=== PATIENT | male | born 1945 | race American Indian/Alaskan Native ===

== ENCOUNTER 2016-04-21 10:18 | Outpatient (CLI) | payer MEDICARE, OTHER ==
--- NOTE | 2016-04-21 15:07 | Cat Scan Report ---
CT ABDOMEN AND PELVIS WITHOUT CONTRAST: INDICATION: Flank pain. COMPARISON: 04/22/2015 FINDINGS: Abdomen and pelvis CT performed following oral contrast only. LUNG BASES: Approximately 6 mm peripheral/pleural-based right middle lobe calcified granuloma again noted, axial image 13, series 2 with another, approximately 4 mm more superiorly also now imaged as on axial image 2. Few coronary calcifications. No effusions. Mild nonspecific distal esophageal prominence/thickening. ABDOMEN: Please note that sensitivity to detect small visceral lesions is limited due to the absence of intravenous contrast. However, interval worsening of multiple hepatic masses noted, as follows: 1. The two dominant right paramidline left hepatic lobe masses are larger and demonstrate increased intrinsic densities/calcifications. The more superior lesion near the dome is approximately 2.4 x 1.9 cm, axial image 46, series 2, previously approximately 1.1 cm. The other more inferior, larger lesion is now 2.5 x 2.2 cm, axial image 62, series 2, previously 1.8 x 1.5 cm. 2. A third hypodense lesion in the left hepatic lobe near its tip now measures 3.1 x 2.3 cm, axial image 84, series 2. 3. At least 2 hypodense lesions also now identified in the right hepatic lobe inferiorly, the larger approximately 1.6 cm on axial image 121 and the other more inferiorly near the tip measuring approximately 1.3 cm, axial image 147, series 2. Grossly unremarkable spleen, gallbladder, pancreas, adrenals, nonaneurysmal abdominal aorta with few atherosclerotic calcifications and IVC. Nonhydronephrotic kidneys with few bilateral renal cortical hypodensities/cysts, the largest approximately 1.5 cm on the right superiorly, axial image 108 while approximately 1.9 cm towards the left lower renal aspect, axial image 146. Approximately 4 mm right renal calcification anteriorly as well, axial image 127. Opacified GI tract nonobstructive and within normal limits. Normal appendix positioned slightly medial, anterior to the right psoas as on axial image 195, amongst others. [id number] colonic stool, most along the ascending colon. PELVIS: Numerous brachytherapy seeds creating streak artifact noted. Few pelvic phleboliths. Grossly unremarkable seminal vesicles and the rectosigmoid. Urinary bladder distention limited with slight exaggerated wall thickness. Subtle perivesicular fat stranding though noted. Minimal presacral stranding as well. No free fluid or significant adenopathy. Multilevel spinal degenerative changes, greatest lower lumbar with severe L4-L5 and L5-S1 disc narrowing with degenerative spurring and vacuum phenomenon. Mild spinal stenosis at L4-L5 also not excluded. CONCLUSION: 1. Interval enlargement of previously identified hepatic masses while some others noted new and most consistent with metastases, as described. These would be amenable to percutaneous CT-guided biopsy, if warranted. 2. Brachytherapy seeds and possible mild cystitis. 3. Various other incidental findings, including benign right middle lobe calcifications, bilateral renal cysts and lower lumbar degenerative changes, amongst others, as above. Thank you for the opportunity to participate in this patient's care.
--- NOTE | 2016-04-21 15:43 | Nuclear Medicine Report ---
BONE SCAN: History: Prostate cancer. Comparison: Noncontrast CT abdomen and pelvis performed the same day. After injection of isotope, gamma camera imaging of the bony system was done. There is a normal uptake of isotope throughout the bony structures without areas of significantly increased or decreased uptake. Mild degenerative uptake at L3-4 and bilateral knees is noted. Normal uptake in the urinary system is seen. IMPRESSION: Negative bone scan. Mild degenerative changes.
== END 2016-04-21 10:19 | disposition home or self-care (01) ==
LOC: NM 10:18
PROVIDERS: ATTEND Urology
DX: C61 Malignant neoplasm of prostate (principal); M48.06 Spinal stenosis, lumbar region; N28.1 Cyst of kidney, acquired; I25.10 Atherosclerotic heart disease of native coronary artery without angina pectoris; I70.0 Atherosclerosis of aorta; N28.89 Other specified disorders of kidney and ureter; I87.8 Other specified disorders of veins; M47.896 Other spondylosis, lumbar region; R10.9 Unspecified abdominal pain; R16.0 Hepatomegaly, not elsewhere classified
CPT/HCPCS: 74176; 78306; A9503

== ENCOUNTER 2016-05-12 08:53 | Day surgery (SDC) | payer MEDICARE, OTHER ==
[2016-05-12] MEDS ORDERED: VERSED IV ONE (10:22)
[2016-05-12] MEDS ORDERED: SUBLIMAZE ONE (10:22)
--- NOTE | 2016-05-13 08:31 | Cat Scan Report ---
CT BIOPSY LIVER: HISTORY: Liver mass, history of prostate cancer. DESCRIPTION OF PROCEDURE: Informed consent was obtained. Sterile technique was utilized. Conscious sedation was accomplished with Versed and fentanyl. The patient was sedated for 20 minutes. Independent cardiorespiratory monitoring by RN. Intraobserver time was [address] guidance, a 17-gauge introducer needle was advanced into a 2.2 cm right hepatic lobe lesion. Three 18-gauge core biopsies were obtained. The samples were deemed adequate by the pathologist on site. The patient tolerated the procedure well. Follow-up scan demonstrates no evidence for hemorrhage. IMPRESSION: Successful CT-guided biopsy of a 2.2 cm right hepatic lobe mass.
== END 2016-05-12 08:54 | disposition home or self-care (01) ==
LOC: OPU 08:53
PROVIDERS: ATTEND Urology
DX: R16.0 Hepatomegaly, not elsewhere classified (principal); Z85.46 Personal history of malignant neoplasm of prostate; Z87.891 Personal history of nicotine dependence
CPT/HCPCS: 47000; 77012; 88307; 88313; J2250; J3010

== ENCOUNTER 2016-09-28 06:30 | Day surgery (SDC) | payer MEDICARE, OTHER ==
[2016-09-28 08:25] LABS: Hematocrit 34.8 % (35.5-45.6); Hemoglobin 11.4 gm/dl (11.8-15.2); Mean Corpuscular HGB Conc 33 % (32-34); Mean Corpuscular Hemoglobin 29 pg (28-32); Mean Corpuscular Volume 88 fl (84-94); Platelet Count 159 K/mm3 (140-440); Red Blood Count 3.96 M/mm3 (3.65-5.03); Red Cell Distribution Width 14.9 % (13.2-15.2); White Blood Count 3.1 K/mm3 (4.5-11.0)
[2016-09-28 08:34] LABS: INR 0.99 (0.87-1.13)
[2016-09-28 08:35] LABS: Partial Thromboplastin Time 28.9 Sec. (24.2-36.6)
[2016-09-28 09:01] LABS: Blastocytes % (Manual) 0 %
[2016-09-28 09:02] LABS: Diff Status Complete; Elliptocytes Rare; Ovalocytes 1+; Polychromasia Rare; Stomatocytes 1+
[2016-09-28] MEDS ORDERED: NACL 0.45% 0 ML IV ONE (09:05)
[2016-09-28] MEDS ORDERED: NACL 0.9% 500 ML 0 ML ONE (09:06)
[2016-09-28] MEDS ORDERED: BENADRYL ONE (09:40)
[2016-09-28] MEDS ORDERED: VERSED IV ONE (10:00)
[2016-09-28] MEDS ORDERED: SUBLIMAZE IV ONE (10:00)
[2016-09-28] MEDS ORDERED: BENADRYL IV ONE (10:30)
--- NOTE | 2016-09-28 11:17 | Cat Scan Report ---
CT BIOPSY LIVER HISTORY: Malignant neoplasm of prostate, liver mass. DESCRIPTION OF PROCEDURE: Informed consent was obtained. Sterile technique was utilized. 1% lidocaine for skin anesthesia. Conscious sedation was accomplished with Versed, fentanyl and Benadryl. The patient was sedated for 25 minutes. Interobserver time of 20 minutes. Independent cardiorespiratory monitoring by RN. Using CT guidance, a 19-gauge introducer needle was advanced to the leading edge of an approximate 4 cm hypodense mass in the anterior left hepatic lobe. Please note that biopsy on 05/12/16, an approximate 2.2 cm similar appearing hypodense mass in the right hepatic lobe was biopsied. Four 20-gauge core biopsies were obtained for pathology. The pathologist was on site and deemed the samples adequate. The patient tolerated the procedure well and left radiology in stable condition. IMPRESSION: Successful CT-guided biopsy of a 4 cm left hepatic lobe mass.
[2016-09-28 13:37] VITALS: BP 127/73
== END 2016-09-28 13:45 | disposition home or self-care (01) ==
LOC: OPU 06:30 → EDSTATUS 08:30 → OPU 13:45
PROVIDERS: ATTEND Urology
DX: C78.7 Secondary malignant neoplasm of liver and intrahepatic bile duct (principal); C61 Malignant neoplasm of prostate
CPT/HCPCS: 36415; 47000; 77012; 85007; 85025; 85610; 85730; 88307; 88342; J1200; J2250; J3010; 88305; 88333; J7040

== ENCOUNTER 2016-10-29 09:41 | Outpatient (CLI) | payer MEDICARE, OTHER ==
[2016-10-29 11:03] LABS: Blood Urea Nitrogen 13 mg/dL (9-20)
--- NOTE | 2016-10-29 15:16 | Cat Scan Report ---
CT scan of chest with IV contrast: History: Malignant neoplasm of prostate. Findings: No endobronchial or mediastinal mass. No mediastinal, hilar or axillary adenopathy. Calcified lymph nodes in the mediastinum and hilar areas. Calcified granuloma right lung. No pleural pericardial effusion. No acute consolidation or lung mass. Impression: Non-enlarged calcified lymph nodes mediastinum and hilar area bilaterally. Calcified granuloma right lung. Degenerative dorsal spine is suspected sclerotic bony metastasis.
--- NOTE | 2016-10-29 15:27 | Cat Scan Report ---
CT scan of abdomen and pelvis with IV contrast: Compared to 04/12/15 and 04/21/16. History: Malignant neoplasm of prostate. Findings: There is faint ill-defined circumscribed hypodensity at the left lobe liver measuring 1.9 cm in diameter with focal central area of enhancement. Hypodensity measuring 2.2 cm in diameter right lobe adjacent to the falciform ligament. 2 hypoechoic densities measuring 1.8 and 2.3 cm in diameter adjacent to each other at right lobe. Hypodensity measuring 3.4 cm in diameter is also identified with central focal areas of enhancement. 1.4 cm hypodensity without enhancement noted in the posterior inferior aspect of the right lobe of the liver. No intrahepatic duct dilatation. Normal pancreas gallbladder and spleen. Normal adrenals. 1.5 cm circumscribed hypodensity right kidney. Subcentimeter hypodensities also noted in the right kidney. 1.5 cm circumscribed hypodensity left kidney with subcentimeter hypodensities and larger hypodensity left kidney measuring 2.1 cm in diameter. Normal urinary bladder. No hydronephrosis. No free intraperitoneal fluid or. Brachytherapy seeds in the prostate. No evidence of appendicitis or diverticulitis. Stool in colon. Degenerative dorsal spine with suspected bony sclerotic metastasis. Impression: Multiple circumscribed hypodensities liver probably suggestive of metastatic disease. Circumscribed hypodensities in kidneys probably suggestive of cysts.
--- NOTE | 2016-10-30 12:34 | Nuclear Medicine Report ---
NUCLEAR MEDICINE WHOLE-BODY BONE SCAN: 10/29/16 10:00:00 CLINICAL: Malignant neoplasm prostate. COMPARISON: 04/21/16 TECHNIQUE: 25.0-millicuries technetium 99m MDP was injected intravenously and whole body scans were obtained at 3 hours. FINDINGS: The distribution of radionuclide in the skeleton is normal except for benign uptake in the right maxillary sinus, both knees and both feet and at L3-4. No suspicious activity. IMPRESSION: Negative for metastatic disease.
== END 2016-10-29 09:42 | disposition home or self-care (01) ==
LOC: NM 09:41
PROVIDERS: ATTEND Internal Medicine Hematology & Oncology
DX: C61 Malignant neoplasm of prostate (principal); J84.10 Pulmonary fibrosis, unspecified; M47.899 Other spondylosis, site unspecified; Z87.891 Personal history of nicotine dependence
CPT/HCPCS: 36415; 71260; 74177; 78306; 82565; 84520; A9503; Q9967

== ENCOUNTER 2017-01-27 11:21 | Outpatient (CLI) | payer MEDICARE, OTHER ==
--- NOTE | 2017-01-28 15:37 | Cat Scan Report ---
CT CHEST, ABDOMEN AND PELVIS WITH CONTRAST: 01/27/17 11:21:00 CLINICAL: Prostate cancer followup. COMPARISON: 10/29/16 TECHNIQUE: Volumetric acquisition and 1.25 millimeter scan reconstructions after the uneventful intravenous injection of 100 cc of Omnipaque 300. Consent was obtained prior to the administration of the contrast. Oral contrast was also given. FINDINGS: Chest: The lungs are clear. No pulmonary nodule or mass. Normal aorta, heart and pulmonary arteries. Normal esophagus and trachea. No mediastinal or hilar lymphadenopathy.No axillary or supraclavicular lymphadenopathy. Abdomen: Previous described left and right hepatic masses are slightly larger. No new lesions. The largest mass is in the medial segment of the left lobe of the liver and measures 3.9 x 3.4 cm compared to 3.4 x 2.9 cm. A second medial segment mass measures 3.4 x 2.5 cm compared to 3.0 x 2.0 cm. A dominant lateral segment left lobe mass measures 3.9 x 3.0 cm compared to 3.6 x 2.7 cm. In addition to an increase in size, there is greater vascularity of the masses with more enhancement in the arterial phase of the scan. The bile ducts and gallbladder are normal. Normal stomach, duodenum, pancreas and spleen. Small bilateral renal cysts in otherwise normal kidneys. Normal adrenal glands. The renal collecting systems and ureters are nondilated. Mild aortoiliac tortuosity and calcification. The inferior vena cava is normal. No lymphadenopathy.No ascites.Normal small bowel. Normal ascending, transverse and descending colon. Normal appendix. Pelvis: Normal urinary bladder and rectum.Brachytherapy seeds in the prostate. No pelvic lymphadenopathy. Bone windows demonstrate no suspicious bone lesion. IMPRESSION: 1. Progression of disease with increased size and vascularity of hepatic metastases. 2. No new lesions. 3. No evidence of pulmonary, jazzmine or skeletal metastasis.
== END 2017-01-27 11:22 | disposition home or self-care (01) ==
LOC: SPVIMAG 11:21
PROVIDERS: ATTEND Internal Medicine Hematology & Oncology
DX: C78.7 Secondary malignant neoplasm of liver and intrahepatic bile duct (principal); C61 Malignant neoplasm of prostate; K76.89 Other specified diseases of liver; N28.1 Cyst of kidney, acquired
CPT/HCPCS: 71260; 74177; Q9967

== ENCOUNTER 2017-04-25 09:42 | Outpatient (CLI) | payer MEDICARE, OTHER ==
--- NOTE | 2017-04-25 14:39 | Nuclear Medicine Report ---
BONE SCAN: History: Prostate cancer Comparison: 10/29/16. After injection of isotope, gamma camera imaging of the bony system was done. There is a normal uptake of isotope throughout the bony structures without areas of significantly increased or decreased uptake. Moderate degenerative uptake is noted in both knees and right ankle. Normal uptake in the urinary system is seen. IMPRESSION: No evidence for metastatic disease to the bones.
--- NOTE | 2017-04-25 15:08 | Cat Scan Report ---
CT ABDOMEN PELVIS WITHOUT CONTRAST: HISTORY: Malignant neoplasm of prostate. COMPARISON: 01/27/17. Bone scan performed the same day. TECHNIQUE: Helical CT in 1.25mm intervals without IV contrast. Sagittal and coronal reconstructions. FINDINGS: Lung bases: No suspicious nodule, infiltrate or effusion. Liver: The previously described mixed density liver lesions the main right and left hepatic lobes are unchanged in size or number. No new liver lesions are identified. Biliary system: Normal. Pancreas: Normal. Spleen: Normal. Kidneys/ureters/bladder: Simple appearing bilateral renal cysts are unchanged in size and number. No obstructive uropathy. The ureters and bladder remain unremarkable. Radiotherapy beads are noted in the prostate bed. Adrenal glands: Normal. Aorta: Normal. Intestines: Normal. Appendix: Normal. Pelvic viscera: Normal. Ascites: None. Adenopathy: None. Musculoskeletal: No suspicious bony lesions have developed. IMPRESSION: Stable findings since 01/27/17. They are approximately 4 or 5 mixed density liver lesions which remain concerning for metastatic disease but are unchanged in size and contour. No new areas of disease are appreciated.
== END 2017-04-25 09:43 | disposition home or self-care (01) ==
LOC: NM 09:42
PROVIDERS: ATTEND Urology
DX: C61 Malignant neoplasm of prostate (principal); K76.89 Other specified diseases of liver; N28.1 Cyst of kidney, acquired; I10 Essential (primary) hypertension; E78.00 Pure hypercholesterolemia, unspecified; Z87.891 Personal history of nicotine dependence
CPT/HCPCS: 74176; 78306; A9503

== ENCOUNTER 2017-07-14 09:11 | Outpatient (CLI) | payer MEDICARE, OTHER ==
--- NOTE | 2017-07-14 14:39 | Cat Scan Report ---
CT ABDOMEN PELVIS WITHOUT CONTRAST: HISTORY: Malignant neoplasm of prostate. COMPARISON: 04/25/17. TECHNIQUE: Helical CT in 1.25mm intervals without IV contrast. Sagittal and coronal reconstructions. FINDINGS: Lung bases: Well-aerated. Calcified granuloma in the lateral right middle lobe is unchanged. No suspicious nodule. Normal heart size. Liver: 4 or 5 subtle liver masses were focal calcifications are unchanged in size and contour since the previous examination. No new liver lesions are identified. Biliary system: Normal. Pancreas: Normal. Spleen: Normal. Kidneys/ureters/bladder: Scattered simple renal cysts are unchanged in size and number. No evidence for nephrolithiasis or hydronephrosis. The ureters and bladder are unremarkable. Adrenal glands: Normal. Aorta: Normal. Intestines: Normal. Appendix: Normal. Pelvic viscera: Radiotherapy beads are noted in the prostate bed. No pelvic mass or adenopathy has developed. Ascites: None. Adenopathy: None. Musculoskeletal: No suspicious bony lesions are identified. Stable mild lumbar spondylosis. IMPRESSION: Stable findings since 04/25/17.
--- NOTE | 2017-07-14 14:41 | Nuclear Medicine Report ---
BONE SCAN: History: Malignant neoplasm of prostate. Comparison: Bone scan dated 04/25/17. CT abdomen pelvis performed the same day. After injection of isotope, gamma camera imaging of the bony system was done. There is a normal uptake of isotope throughout the bony structures without areas of significantly increased or decreased uptake. Normal uptake in the urinary system is seen. Mild facet uptake in the cervical spine and lumbar spine is noted and stable. Moderate degenerative uptake in the bilateral knees is stable. IMPRESSION: Negative bone scan.
== END 2017-07-14 09:12 | disposition home or self-care (01) ==
LOC: NM 09:11
PROVIDERS: ATTEND Urology
DX: C61 Malignant neoplasm of prostate (principal); N28.1 Cyst of kidney, acquired; J84.10 Pulmonary fibrosis, unspecified; K76.89 Other specified diseases of liver; M47.896 Other spondylosis, lumbar region
CPT/HCPCS: 74176; 78306; A9503

== ENCOUNTER 2018-01-13 10:24 | Outpatient (CLI) | payer MEDICARE, OTHER ==
--- NOTE | 2018-01-13 13:50 | Cat Scan Report ---
CT chest without contrast: Prostatic malignancy. Transverse images obtained from the thoracic inlet to the low chest with coronal and sagittal 2-D reformatted images. Comparison is made to a contrasted exam in January 2017. Numerous pulmonary and pleural based calcified nodules are noted. No noncalcified nodules noted. Hilar calcifications are present. Scattered shoddy mediastinal adenopathy is present. The central airways are patent. No significant changes compared to prior exam. Impression: Old granulomatous infection. No acute finding.
--- NOTE | 2018-01-13 14:10 | Cat Scan Report ---
CT abdomen and pelvis without contrast: Prostate malignancy. Transverse images are obtained through the abdomen and pelvis with coronal and sagittal 2-D reformatted images. Comparison made to the most recent prior exam of July 14, 2017. Granulomatous calcification in the right lobe of the liver. Heavily calcified and faintly hypodense mass seen in the left lobe of the liver with 2 adjacent lesions in the middle lobe. The more inferior of the 2 middle lobe masses is slightly more heavily calcified than seen on prior exam but the other to a similar. The middle lobe masses appear relatively unchanged in size but the left lobe mass may be slightly smaller. The abdominal findings are not otherwise remarkable. There is a non-obstructing small calculus in the upper pole of the right kidney. There is an inferior cyst with an adjacent area of hyperdensity in the mid kidney and a similar area of hyperdensity in the posterior lower right kidney. These hyperdensities are are unchanged from the most recent exam of July 14, 2017 but were not apparent on the prior exam in April 2017. 2 adjacent renal cysts are noted in the left lower kidney and a single cyst in the upper pole which have remained stable. No mesenteric or para-aortic adenopathy is noted. The partially opacified bowel and mesentery appears normal. Brachy therapy seeds noted in the prostate gland. No lytic or blastic bone lesions noted. Significant degenerative bone and disc degenerative change is noted in the lower lumbar spine. Impressions: 1. Generally stable right lobe liver metastases with questionable improvement in the left hepatic lobe lesion. 2. Unexplained hyperdensities in the right kidney stable since prior exam.
== END 2018-01-13 10:25 | disposition home or self-care (01) ==
LOC: CT 10:24
PROVIDERS: ATTEND Internal Medicine Hematology & Oncology
DX: L92.9 Granulomatous disorder of the skin and subcutaneous tissue, unspecified (principal); N28.89 Other specified disorders of kidney and ureter; K76.89 Other specified diseases of liver; I10 Essential (primary) hypertension; E78.00 Pure hypercholesterolemia, unspecified; M19.90 Unspecified osteoarthritis, unspecified site; Z90.79 Acquired absence of other genital organ(s); Z87.891 Personal history of nicotine dependence
CPT/HCPCS: 71250; 74176

== ENCOUNTER 2018-04-21 11:00 | Outpatient (CLI) | payer MEDICARE ==
[2018-04-21 11:28] LABS: Blood Urea Nitrogen 15 mg/dL (9-20)
--- NOTE | 2018-04-21 14:37 | Cat Scan Report ---
CT chest with contrast: Prostate CA. Following IV administration of contrast transverse sections are obtained through the chest. Coronal and sagittal 2-D reformatted images are included. Comparison is made to a comparable prior examination of January 13, 2018. There is shotty adenopathy in the mediastinum and both hilar regions. Some of these are calcified. There are a few scattered subpleural and parenchymal calcified nodules in the right lung. None are noted on the left. Focal linear atelectasis is noted at the medial left lung base. The findings are not otherwise remarkable nor changed from the prior examination. No blastic or lytic bone lesions identified. Impression: Stable exam. Prior granulomatous infection of the chest with no evidence of metastatic disease.
--- NOTE | 2018-04-21 15:02 | Cat Scan Report ---
CT abdomen and pelvis with contrast: Prostate CA. Following IV administration of contrast sections are obtained through the abdomen and pelvis with coronal and sagittal 2-D reformatted images. Comparison is made to a noncontrasted scan on January 13, 2018. Partially calcified lesions are again identified in the left middle and right lobes of the liver. The calcifications appear to be generally slightly denser than on prior exam. No significant change in size of the hypodense portions are noted. No evidence of a new lesion. Numerous bilateral circumscribed hypodensities are identified throughout both kidneys which are more evident with the contrasted images. The nonobstructing small calculus in the left upper kidney is unchanged but more difficult to see with the administration of contrast. Abdominal and retroperitoneal structures are not otherwise remarkable. There is no obvious periaortic or mesenteric adenopathy identified. The partially opacified bowel appears normal. Images of the pelvis again demonstrates prostatic brachy therapy seeds with no evidence of adenopathy. And disc changes with no blastic or lytic lesions identified. Impressions: Stable findings. No evidence of new liver or other lesions.
== END 2018-04-21 11:01 | disposition home or self-care (01) ==
LOC: CT 11:00
PROVIDERS: ATTEND Internal Medicine Hematology & Oncology
DX: C61 Malignant neoplasm of prostate (principal); L92.9 Granulomatous disorder of the skin and subcutaneous tissue, unspecified; I10 Essential (primary) hypertension; E78.00 Pure hypercholesterolemia, unspecified; Z87.891 Personal history of nicotine dependence
CPT/HCPCS: 36415; 71260; 74177; 82565; 84520; Q9967

== ENCOUNTER 2018-06-23 09:53 | Outpatient (CLI) | payer MEDICARE, OTHER ==
[2018-06-23 11:23] LABS: Blood Urea Nitrogen 11 mg/dL (9-20)
--- NOTE | 2018-06-24 11:31 | Cat Scan Report ---
PROCEDURE: CT ABDOMEN PELVIS W CON, CT CHEST W CON TECHNIQUE: CT imaging is obtained through the chest, abdomen and pelvis following the ingestion of p ositive enteric contrast and intravenous administration of contrast. HISTORY: PROSTATE CANCER COMPARISONS: 04/21/2018, 07/14/2017, 01/27/2017 FINDINGS: Chest: Heart size is normal. No pericardial effusion. No mediastinal lymphadenopathy. Scattered jazzmine calcif ications are consistent with sequela of old granulomatous disease. The aorta and main pulmonary arter y are normal in course and caliber. Scattered thoracic aortic calcification. Coronary artery disease. The central airways are patent. No bronchiectasis, pneumothorax, effusion, or focal airspace disease. Mild sequela of centrilobular emphysema. Right middle lobe pleural and 7 pleural calcification.. Rig ht minor fissure associated calcification also sequela of old granulomatous disease. No worrisome pul monary nodule or mass. Abdomen/pelvis: Calcified granulomas in the liver. An exophytic hypoenhancing lesion with adjacent calcification markie uring up to 19 mm on axial series 2, image 36 is unchanged from prior. The gallbladder, pancreas, spl een, and adrenal glands are unremarkable. Kidneys show no worrisome lesions, hydronephrosis, or calculi. Scattered cysts in both kidneys measur ing up to 2.5 cm are unchanged. Urinary bladder is without intraluminal stone. Suggested mild diffuse urinary bladder wall thickening is unchanged. Multiple metallic radiodensities within the prostate a re unchanged. Multiple pelvic phleboliths. Small and large bowel are normal in caliber. Positive enteric contrast is seen as far distally as the ileum. Appendix is normal. No free air, free fluid, or lymphadenopathy identified. Aorta is normal in course and caliber. Superficial soft tissues are unremarkable. No acute or aggressive appearing skeletal findings. IMPRESSION: No evidence of metastatic disease within the chest, abdomen or pelvis. This document is electronically signed by Evan Jimenez MD., June 24 2018 11:29:13 AM ET
--- NOTE | 2018-06-26 14:59 | Nuclear Medicine Report ---
BONE SCAN: History: Restaging of prostate cancer. Comparison: Bone scan dated 07/14/17. CT chest abdomen and pelvis dated 06/23/18. After injection of isotope, gamma camera imaging of the bony system was done. Moderate degenerative uptake is identified in the shoulders, right C4-5 facet joint, L2-3 facet joints, knees and ankles. This pattern is unchanged since the bone scan dated 07/14/17. No focal areas of abnormal uptake are identified to suggest metastatic disease. IMPRESSION: Negative bone scan. Degenerative findings as described. No change is demonstrated since the bone scan dated 07/14/17.
== END 2018-06-23 09:54 | disposition home or self-care (01) ==
LOC: NM 09:53
PROVIDERS: ATTEND Internal Medicine Hematology & Oncology
DX: C61 Malignant neoplasm of prostate (principal); J43.2 Centrilobular emphysema; I25.10 Atherosclerotic heart disease of native coronary artery without angina pectoris; M47.812 Spondylosis without myelopathy or radiculopathy, cervical region; I10 Essential (primary) hypertension; E78.00 Pure hypercholesterolemia, unspecified; M19.90 Unspecified osteoarthritis, unspecified site; Z87.891 Personal history of nicotine dependence
CPT/HCPCS: 36415; 71260; 74177; 78306; 82565; 84520; A9503; Q9967

== ENCOUNTER 2018-09-01 09:52 | Outpatient (CLI) | payer MEDICARE ==
[2018-09-01 10:42] LABS: Blood Urea Nitrogen 14 mg/dL (9-20)
--- NOTE | 2018-09-01 15:14 | Nuclear Medicine Report ---
NUCLEAR MEDICINE WHOLE-BODY BONE SCAN: 09/01/18 CLINICAL: Prostate cancer. COMPARISON: 06/23/18 and 07/14/17 TECHNIQUE: 25 millicuries technetium 99m MDP was injected intravenously and whole body scans were obtained at 3 hours. FINDINGS: The distribution pattern of radionuclide in the skeleton and soft tissues is unchanged compared to the previous exam except for a single tiny focus of uptake at the anterior left ninth rib. This is only identified on anterior imaging and there is no correlating lesion is identified on today's CT chest. Stable uptake in the right C4-5 facet joint and bilateral L2-3 facet joints, knees and ankles. IMPRESSION: A new tiny focus of uptake at the left anterior ninth rib which is of uncertain significance given that there is no CT finding. This may represent contamination related to the injection of the radionuclide and is of low suspicion. Recommend short-term followup bone scan for reevaluation.
--- NOTE | 2018-09-01 15:35 | Cat Scan Report ---
PROCEDURE: CT CHEST W CON TECHNIQUE: Computerized axial tomography of the chest was performed during the IV injection of iodin ated nonionic contrast. CT DOSE LENGTH PRODUCT: 4325.7 mGycm HISTORY: MALIGNANT NEOPLASM OF PROSTATE, HYPERTENSION COMPARISONS: None . FINDINGS: Contrast-enhanced CT of the chest was performed and compared to the prior examination of [facility] 2018. These images demonstrate no CT evidence of pulmonary thromboembolic disease. There is no aortic disse ction. There is a partially calcified right superior hilar node, 2.3 x 1.4 cm, unchanged. There is a node anterior to the distal trachea, axial image 48, 1.3 x 2.2 cm, unchanged. There is a right lower lobe noncalcified nodule, image 85, 0.3 cm unchanged from prior examination an d also unchanged from baseline examination of October 29, 2016. There are bilateral calcified pulmonary granulomas. There is a low-density left lobe thyroid nodule, 1.5 cm unchanged There is no pleural or pericardial effusion. An abdominal CT has been performed and will be reported separately. IMPRESSION: Stable small mediastinal lymph nodes Stable right anterior right lower lobe nodule This document is electronically signed by Bhaskar Nascimento MD., Sep 01 2018 03:33:13 PM ET
--- NOTE | 2018-09-01 15:50 | Cat Scan Report ---
PROCEDURE: CT ABDOMEN PELVIS W CON TECHNIQUE: Computerized axial tomography of the abdomen and pelvis was performed after the IV inject ion of iodinated nonionic contrast. HISTORY: MALIGNANT NEOPLASM OF PROSTATE, HYPERTENSION FINDINGS: Contrast-enhanced CT of the abdomen and pelvis was performed and data was reformatted in th e sagittal and coronal planes. Comparison is made to the prior examination of June 23, 2018. These images demonstrate a 0.3 cm nodule in the anterior aspect of the right lower lobe which has bee n stable in comparison to prior examinations dating back to October 29, 2016. There are some linear scar versus atelectasis at the medial left lung base. There is a lesion of the anterior aspect of the lateral segment left lobe of liver, partially exophyt ic the liver, axial image 37 measuring 3.0 x 3.1 x 2.8 cm and previously measuring 2.1 x 2.2 x 2.5 cm on the examination of June 13, 2018 and measuring 1.4 x 1.5 x 1.3 cm on the examination of September 19, 2018. There is a partially calcified left lobe hepatic lesion, axial images 26-27, 1.2 x 1.7 x 2.0 cm not s ignificantly changed from prior exam when measured in similar fashion. The liver is normal in size. The adrenal glands and pancreas are unremarkable. The gallbladder is within normal limits. There is no renal or ureteral calculus. There are bilateral renal cysts. There is no small or large bowel obstruction. There is aortic atherosclerotic change without aneurysm al dilation of the aorta. Pelvis: There is a normal appendix. There is no evidence of diverticulitis. 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 The urinary bladder is thick-walled and there is stranding around the bladder. This is similar to the prior examination but these findings would be consistent with cystitis. There are vacuum degenerative changes at L3-L4 and L5-S1, with endplate remodeling at these levels. N o definite nerve root impingement is seen IMPRESSION: ABDOMEN: Lesion of the lateral segment left lobe of liver, increased in size from prior CT examinatio ns of June 23, 2018 and April 21, 2018. Pelvis: The urinary bladder is thick-walled and there is stranding cholecystitis, similar to prior ex am This document is electronically signed by Bhaskar Nascimento MD., Sep 01 2018 03:48:00 PM ET
== END 2018-09-01 09:53 | disposition home or self-care (01) ==
LOC: NM 09:52
PROVIDERS: ATTEND Internal Medicine Hematology & Oncology
DX: N28.1 Cyst of kidney, acquired (principal); J84.10 Pulmonary fibrosis, unspecified; M47.817 Spondylosis without myelopathy or radiculopathy, lumbosacral region; K81.9 Cholecystitis, unspecified; I25.10 Atherosclerotic heart disease of native coronary artery without angina pectoris; R59.9 Enlarged lymph nodes, unspecified; R91.1 Solitary pulmonary nodule; E78.00 Pure hypercholesterolemia, unspecified; I10 Essential (primary) hypertension
CPT/HCPCS: 36415; 71260; 74177; 78306; 82565; 84520; A9503